=== PATIENT | male | born 1975 ===

== ENCOUNTER 2023-01-16 10:06 | Outpatient (OUT) | payer OTHER, SELFPAY ==
--- NOTE | 2023-01-16 10:23 | XR_ITS ---
[address] [address] Patient Name: JENNIFFER MENENDEZ MRN: [id number] date: 1975 Sex: M Assigned Patient Location: [facility] Current Patient Location: Accession/Order Number: [id number] Exam Date: 01/16/2023 10:23 Report Date: 01/17/2023 07:32 At the request of: ANCA ALCANTAR Procedure: XR foot LT min 3V PROCEDURE: XR foot LT min 3V COMPARISON: None. HISTORY: LEFT FOOT PAIN FINDINGS: BONES:Transverse fracture neck of the third metatarsal with 5 degrees of apex lateral angulation. Remote healed fracture of the fifth metatarsal. No dislocation. SOFT TISSUES:Negative. No visible soft tissue swelling. EFFUSION:None visible. OTHER: Negative. XR/XR foot LT min 3V IMPRESSION: Acute fracture third metatarsal neck Electronically authenticated by: JV TOWNSEND Date: 01/17/2023 07:32
== END 2023-01-16 10:07 | disposition home or self-care (01) ==
LOC: RAD 10:08
PROVIDERS: Visit Provider Physician Assistant
DX: M79.672 Pain in left foot (principal); S92.332A Displaced fracture of third metatarsal bone, left foot, initial encounter for closed fracture
CPT/HCPCS: 73630

== ENCOUNTER 2023-02-26 10:09 | Outpatient (OUT) | payer OTHER, SELFPAY ==
--- NOTE | 2023-02-26 | XR_ITS ---
The [address] [address] Patient Name: JENNIFFER MENENDEZ MRN: [id number] date: 1975 Sex: M Assigned Patient Location: [facility] Current Patient Location: [facility] Accession/Order Number: [id number] Exam Date: 02/26/2023 10:22 Report Date: 02/26/2023 10:40 At the request of: DELMY MCKINNEY Procedure: XR foot LT min 3V PROCEDURE: XR foot LT min 3V HISTORY: LEFT FOOT PAIN COMPARISON: XR foot left 01/16/2023 FINDINGS: BONES:Prominent callus formation surrounding neck of third metatarsal which remains in normal alignment. SOFT TISSUES:No visible soft tissue swelling. EFFUSION:None visible. OTHER: Negative. XR/XR foot LT min 3V IMPRESSION: 1. Normal alignment and ongoing bone healing of third metatarsal fracture. Electronically authenticated by: JESSICA STILL Date: 02/26/2023 10:40
== END 2023-02-26 10:10 | disposition home or self-care (01) ==
LOC: RAD 10:09
PROVIDERS: Visit Provider Podiatrist Foot & Ankle Surgery
DX: M84.375A Stress fracture, left foot, initial encounter for fracture (principal)
CPT/HCPCS: 73630